=== PATIENT | male | born 1940 | race Caucasian/White ===

== ENCOUNTER 2017-10-24 16:56 | Inpatient (IN) | payer OTHER, MEDICARE ==
[~2017-10-24] VITALS: Ht 172.7 cm; Wt 107.2 kg
[2017-10-24] VITALS (8 sets, daily range): BP systolic 119–146; BP diastolic 63–81; PULSE 64–140; RESP 16–22; TEMP 97.9–98.6; O2SAT 95–98
[~2017-10-24 16:56] MED LIST: ASPI1TAB7 PO; ATOR40TA PO; DILT60TA PO; GLIP5 PO; HYDR-2768 PO; HYDR10TA65 PO; HYDR50TA5 PO; MELO7.5; METF-324 PO; POTA595T5 PO; RANI150T PO; ZOLP10TA3 PO
[2017-10-24] MEDS ORDERED: DILTIAZEM HCL 25 MG/5 ML VIAL IV ONE ×2 (17:45→19:15)
--- NOTE | 2017-10-24 17:59 | RADRPT ---
EXAM DATE/TIME: 10/24/2017 17:50 [place] COMPARISON: CHEST SINGLE AP, June 27, 2015, 15:51. INDICATIONS : Short of breath. MEDICAL HISTORY : None. SURGICAL HISTORY : None. ENCOUNTER: Initial ACUITY: 1 day PAIN SCORE: 0/10 LOCATION: Bilateral chest FINDINGS: A single view of the chest demonstrates the lungs to be symmetrically aerated without evidence of mas s, infiltrate or effusion. The heart is enlarged, similar to prior and 2014. The central bronchopul monary markings lung.. Anterior plate in the lower cervical region. CONCLUSION: Stable cardiomegaly. The lungs are clear. Obie Burdick MD on October 24, 2017 at 17:57 Board Certified Radiologist. This report was verified electronically.
[2017-10-24] MEDS ORDERED: DILTIAZEM INJ 125 MG in SODIUM CHLORIDE 0.9% INJ 100 ML IV PRN (18:15)
[2017-10-24] MEDS ORDERED: HYDR25TA5 PO (18:22)
[2017-10-24] MEDS ORDERED: GLIP5TAB8 PO (18:22)
[2017-10-24] MEDS ORDERED: ALBUAER3 INH (18:22)
[2017-10-24] MEDS ORDERED: GABA300C5 PO (18:22)
[2017-10-24] MEDS ORDERED: ATOR40TA16 PO (18:22)
[2017-10-24] MEDS ORDERED: LEVO.125 PO (18:22)
[2017-10-24] MEDS ORDERED: MULT400T PO (18:22)
[2017-10-24] MEDS ORDERED: ALPR0.25 PO (18:22)
[2017-10-24] MEDS ORDERED: METF500T PO (18:22)
[2017-10-24] MEDS ORDERED: VITA10002 PO (18:22)
[2017-10-24] MEDS ORDERED: RANI150T PO (18:22)
[2017-10-24] MEDS ORDERED: ASPI-516 CHEW (18:22)
[2017-10-24] MEDS ORDERED: METO25TA3 PO (18:22)
[2017-10-24] MEDS ORDERED: XARE15TA PO (18:23)
[2017-10-24] MEDS ORDERED: HYDR-3516 PO (18:26)
[2017-10-24] MEDS ORDERED: HYDR10TA65 PO (18:26)
[2017-10-24] MEDS ORDERED: HYDR5TAB64 PO (18:26)
[2017-10-24] MEDS ORDERED: MELO7.5T27 PO (18:26)
[2017-10-24 18:30] LABS: AUTOMATED NEUTROPHIL # 15.9 TH/MM3 (1.8-7.7); BASOPHIL # 0.1 TH/MM3 (0-0.2); BASOPHIL % 0.5 % (0.0-2.0); EOSINOPHIL # 0.3 TH/MM3 (0-0.4); EOSINOPHIL % 1.2 % (0.0-4.0); HEMOGLOBIN 15.3 GM/DL (13.0-17.0); LYMPH % 19.4 % (9.0-44.0); LYMPHOCYTE # 4.5 TH/MM3 (1.0-4.8); MEAN CELL VOLUME 95.9 FL (80.0-100.0); MEAN CORPUSCULAR HEMOGLOBIN 33.4 PG (27.0-34.0); MEAN CORPUSCULAR HGB CONC 34.8 % (32.0-36.0); MEAN PLATELET VOLUME 7.8 FL (7.0-11.0); MONOCYTE # 2.3 TH/MM3 (0-0.9); NEUT % 68.9 % (16.0-70.0); PLATELET COUNT 356 TH/MM3 (150-450); RED BLOOD COUNT 4.59 MIL/MM3 (4.50-5.90); RED CELL DISTRIBUTION WIDTH 14.1 % (11.6-17.2)
[2017-10-24 18:46] LABS: ALT (GPT) 23 U/L (12-78)
[2017-10-24 18:50] LABS: ALKALINE PHOSPHATASE 78 U/L (45-117); TOTAL PROTEIN 6.5 GM/DL (6.4-8.2); TROPONIN I 0.04 NG/ML (0.02-0.05)
[2017-10-24 18:51] LABS: ALBUMIN 3.3 GM/DL (3.4-5.0); AST (GOT) 22 U/L (15-37); BLOOD UREA NITROGEN 15 MG/DL (7-18); CALCIUM 8.4 MG/DL (8.5-10.1); CHLORIDE 103 MEQ/L (98-107); CREATININE 0.82 MG/DL (0.60-1.30); GLOMERULAR FILTRATION RATE 92 ML/MIN (>89); GLUCOSE,RANDOM 90 MG/DL (74-106); SODIUM (NA) 138 MEQ/L (136-145)
[2017-10-24 18:57] LABS: INTERNATIONAL NORMALIZED RATIO 1.2 RATIO; PROTHROMBIN TIME - PATIENT 12.1 SEC (9.8-11.6)
[2017-10-24] MEDS ORDERED: XARE20TA PO (19:04)
--- NOTE | 2017-10-24 19:29 | PD ---
HPI Chief Complaint: Respiratory Symptoms Time Seen by Provider: 17:41 Travel History International Travel<30 days: No Contact w/Intl Traveler<30days: No Traveled to known affect area: No History of Present Illness HPI 77y male with history of paroxysmal atrial fibrillation on Xarelto, DM, hypothyroid, CHF, and remote history of brain tumors presents to the ED with SOB with exertion and lightheadedness for 3-4 days. No palliative or provocative factors. Symptoms are mild-moderate. Says he ran out of his medication Multaq 3-4 days ago and started developing his symptoms. Denies syncope, head trauma. Patient states that he went to [facility] about 3:45 PM and they recommended he come to the emergency department for evaluation. Patient denies fever, chills, chest pain. His special weapons unit officer is Dr. Dietz. His last echocardiogram was recent but he does not know the results. PFSH Past Medical History Atrial Fibrillation: Yes Anxiety: Yes Depression: Yes Cancer: Yes (Skin Cancer/ brain tumor) High Cholesterol: Yes Chemotherapy: No Congestive Heart Failure: Yes Diabetes: Yes Patient Takes Glucophage: Yes Diminished Hearing: No Gastrointestinal Disorders: No GERD: Yes Genitourinary: No Hypertension: Yes Immune Disorder: No Implanted Vascular Access Dvce: No Kidney Stones: Yes Musculoskeletal: Yes Neurologic: Yes Psychiatric: Yes Reproductive: No Respiratory: No Radiation Therapy: No Thyroid Disease: Yes Past Surgical History Abdominal Surgery: Yes (Cholecystectomy) Cardiac Surgery: No Cholecystectomy: Yes (Late ') Ear Surgery: No Endocrine Surgery: No Eye Surgery: No Genitourinary Surgery: No Neurologic Surgery: Yes (Brain tumor removed 1998) Oral Surgery: No Thoracic Surgery: No Other Surgery: Yes (neck) Social History Alcohol Use: Yes (Social Drinker - Beer) Tobacco Use: No Substance Use: No Allergies-Medications (Allergen,Severity, Reaction): Coded Allergies: amoxicillin (Unverified Allergy, Severe, 04/20/17) morphine (Unverified Allergy, Severe, 04/20/17) prazosin (Unverified Allergy, Severe, 04/20/17) venlafaxine (Unverified Allergy, Severe, 04/20/17) Reported Meds & Prescriptions Reported Meds & Active Scripts Active Reported Xarelto (Rivaroxaban) 20 Mg Tab 20 Mg PO DAILY Hydrocortisone 5 Mg Tab 5 Mg PO HS Take with food to decrease GI upset Hydrocortisone 10 Mg Tab 10 Mg PO DAILY Take with food to decrease GI upset Hydrocodone-Acetaminophen 5-325 mg Tab 1 Tab PO Q6H PRN Meloxicam 7.5 Mg Tab 7.5 Mg PO DAILY Multaq (Dronedarone) 400 Mg Tab 400 Mg PO BID Metformin (Metformin HCl) 500 Mg Tab 250 Mg PO BIDPC Glipizide 5 Mg Tab 2.5 Mg PO BIDAC Take 30 minutes before a meal Atorvastatin (Atorvastatin Calcium) 40 Mg Tab 40 Mg PO HS Alprazolam 0.25 Mg Tab 0.25 Mg PO DAILY Gabapentin 300 Mg Cap 300 Mg PO TID Metoprolol Tartrate 25 Mg Tab 25 Mg PO BID Proair Hfa 8.5 GM Inh (Albuterol Sulfate) 90 Mcg/Act Aer 2 Puff INH Q4-6H PRN 108 mcg/actuation Synthroid (Levothyroxine Sodium) 125 Mcg Tab 125 Mcg PO DAILY Hydrochlorothiazide 25 Mg Tab 25 Mg PO DAILY Vitamin B-12 (Cyanocobalamin) 1,000 Mcg Tab 1,000 Mcg PO DAILY Review of Systems Except as stated in HPI: all other systems reviewed are Neg Physical Exam Narrative GENERAL: WD, WN in NAD SKIN: Focused skin assessment warm/dry. HEAD: Atraumatic. Normocephalic. EYES: Pupils equal and round. No scleral icterus. No injection or drainage. EOMI , no nystagmus ENT: No nasal bleeding or discharge. Mucous membranes pink and moist. NECK: Trachea midline. No JVD. CARDIOVASCULAR:Irregularly irregular, range 70-145 No murmur appreciated. RESPIRATORY: No accessory muscle use. Clear to auscultation. Breath sounds equal bilaterally. GASTROINTESTINAL: Abdomen soft, non-tender, nondistended. No CVA tenderness MUSCULOSKELETAL: No obvious deformities. No clubbing. No cyanosis. No edema. Homans sign negative. NEUROLOGICAL: Awake and alert. No obvious cranial nerve deficits. Motor grossly within normal limits. Normal speech. PSYCHIATRIC: Appropriate mood and affect; insight and judgment normal. Data Data Last Documented VS Vital Signs Date Time Temp Pulse Resp B/P (MAP) Pulse Ox O2 Delivery O2 Flow Rate FiO2 10/24/17 19:13 73 16 127/71 (89) 96 Room Air 10/24/17 17:37 97.9 Orders Orders Complete Blood Count With Diff (10/24/17 17:41) Comprehensive Metabolic Panel (10/24/17 17:41) B-Type Natriuretic Peptide (10/24/17 17:41) Act Partial Throm Time (Ptt) (10/24/17 17:41) Prothrombin Time / Inr (Pt) (10/24/17 17:41) Troponin I (10/24/17 17:41) Electrocardiogram (10/24/17 17:41) Chest, Single Ap (10/24/17 17:41) Diltiazem Inj (Cardizem Inj) (10/24/17 17:45) Diltiazem Inj (Cardizem Inj) (10/24/17 18:15) Diet Heart Healthy (10/24/17 Dinner) Diltiazem Inj (Cardizem Inj) (10/24/17 19:15) Dronedarone (Multaq) (10/24/17 19:45) Urinalysis - C+S If Indicated (10/24/17 19:53) Admit Order (Ed Use Only) (10/24/17 ) Labs Laboratory Tests Test 10/24/17 17:50 White Blood Count 23.0 TH/MM3 Red Blood Count 4.59 MIL/MM3 Hemoglobin 15.3 GM/DL Hematocrit 44.0 % Mean Corpuscular Volume 95.9 FL Mean Corpuscular Hemoglobin 33.4 PG Mean Corpuscular Hemoglobin Concent 34.8 % Red Cell Distribution Width 14.1 % Platelet Count 356 TH/MM3 Mean Platelet Volume 7.8 FL Neutrophils (%) (Auto) 68.9 % Lymphocytes (%) (Auto) 19.4 % Monocytes (%) (Auto) 10.0 % Eosinophils (%) (Auto) 1.2 % Basophils (%) (Auto) 0.5 % Neutrophils # (Auto) 15.9 TH/MM3 Lymphocytes # (Auto) 4.5 TH/MM3 Monocytes # (Auto) 2.3 TH/MM3 Eosinophils # (Auto) 0.3 TH/MM3 Basophils # (Auto) 0.1 TH/MM3 CBC Comment AUTO DIFF Differential Comment AUTO DIFF CONFIRMED Platelet Estimate NORMAL Platelet Morphology Comment NORMAL Prothrombin Time 12.1 SEC Prothromb Time International Ratio 1.2 RATIO Activated Partial Thromboplast Time 25.7 SEC Blood Urea Nitrogen 15 MG/DL Creatinine 0.82 MG/DL Random Glucose 90 MG/DL Total Protein 6.5 GM/DL Albumin 3.3 GM/DL Calcium Level 8.4 MG/DL Alkaline Phosphatase 78 U/L Aspartate Amino Transf (AST/SGOT) 22 U/L Alanine Aminotransferase (ALT/SGPT) 23 U/L Total Bilirubin 1.0 MG/DL Sodium Level 138 MEQ/L Potassium Level 3.7 MEQ/L Chloride Level 103 MEQ/L Carbon Dioxide Level 28.0 MEQ/L Anion Gap 7 MEQ/L Estimat Glomerular Filtration Rate 92 ML/MIN Troponin I 0.04 NG/ML B-Type Natriuretic Peptide 53 PG/ML MDM Medical Decision Making Medical Screen Exam Complete: Yes Emergency Medical Condition: Yes Differential Diagnosis Medication noncompliance, SVT, paroxysmal A. fib Narrative Course 77-year-old male with a history of paroxysmal atrial fibrillation on Xarelto to the emergency department complaining of shortness of breath and lightheadedness for 3-4 days. States that he ran out of his medication, Multaq. Patient placed on air sampling and monitoring. Labs and images ordered. Initial VS 119/67, HR variable from 70-145 BPM. Note that patient is asymptomatic during these periods of paroxysmal atrial fibrillation runs. EKG shows sinus rhythm with 1st degree heart block. Laboratory Tests Test 10/24/17 17:50 White Blood Count 23.0 TH/MM3 Red Blood Count 4.59 MIL/MM3 Hemoglobin 15.3 GM/DL Hematocrit 44.0 % Mean Corpuscular Volume 95.9 FL Mean Corpuscular Hemoglobin 33.4 PG Mean Corpuscular Hemoglobin Concent 34.8 % Red Cell Distribution Width 14.1 % Platelet Count 356 TH/MM3 Mean Platelet Volume 7.8 FL Neutrophils (%) (Auto) 68.9 % Lymphocytes (%) (Auto) 19.4 % Monocytes (%) (Auto) 10.0 % Eosinophils (%) (Auto) 1.2 % Basophils (%) (Auto) 0.5 % Neutrophils # (Auto) 15.9 TH/MM3 Lymphocytes # (Auto) 4.5 TH/MM3 Monocytes # (Auto) 2.3 TH/MM3 Eosinophils # (Auto) 0.3 TH/MM3 Basophils # (Auto) 0.1 TH/MM3 CBC Comment AUTO DIFF Differential Comment AUTO DIFF CONFIRMED Platelet Estimate NORMAL Platelet Morphology Comment NORMAL Prothrombin Time 12.1 SEC Prothromb Time International Ratio 1.2 RATIO Activated Partial Thromboplast Time 25.7 SEC Blood Urea Nitrogen 15 MG/DL Creatinine 0.82 MG/DL Random Glucose 90 MG/DL Total Protein 6.5 GM/DL Albumin 3.3 GM/DL Calcium Level 8.4 MG/DL Alkaline Phosphatase 78 U/L Aspartate Amino Transf (AST/SGOT) 22 U/L Alanine Aminotransferase (ALT/SGPT) 23 U/L Total Bilirubin 1.0 MG/DL Sodium Level 138 MEQ/L Potassium Level 3.7 MEQ/L Chloride Level 103 MEQ/L Carbon Dioxide Level 28.0 MEQ/L Anion Gap 7 MEQ/L Estimat Glomerular Filtration Rate 92 ML/MIN Troponin I 0.04 NG/ML B-Type Natriuretic Peptide 53 PG/ML Last Impressions Chest X-Ray 10/24/17 1741 Signed Impressions: Service Date/Time: Tuesday, October 24, 2017 17:50 - CONCLUSION: Stable cardiomegaly. The lungs are clear. Obie Burdick MD Leukocytosis present at 23. Last white blood cell count 17. Patient is on cortisone 10 mg every morning and 5 mg q. at bedtime. He appears to have chronic elevated white blood cell count. Cardiac enzymes negative, no electrolyte abnormalities. Patient initially placed on diltiazem 5mg and continued to have variable rate of 70-145 BPM. Patient was then administered diltiazem 20 mg IV bolus. Multaq has been ordered for administration. Patient continues to be on a diltiazem drip 5 mg. HR improved to 70-90 BPM, BP stable at 134/63. Pt remained asymptomatic in the ED today. Pt will be admitted for observation. Diagnosis Primary Impression: Paroxysmal atrial fibrillation with rapid ventricular response Additional Impression: Noncompliance with medication regimen Admitting Information Admitting Physician Requests: Admit Condition: Stable Elicia Rincon Oct 24, 2017 19:29
[2017-10-24] MEDS ORDERED: DRONEDARONE 400 MG TAB PO ONE (19:45)
[2017-10-24] MEDS ORDERED: SODIUM CHLORIDE 0.9% FLUSH 10 ML FLUSH IV FLUSH PRN (20:15)
[2017-10-24] MEDS ORDERED: GLUCAGON 1 MG/ML VIAL OTHER PRN (20:15)
[2017-10-24] MEDS ORDERED: ONDANSETRON HCL 4 MG/2 ML VIAL IVP PRN (20:15)
[2017-10-24] MEDS ORDERED: ACETAMINOPHEN 325 MG TAB PO PRN (20:15)
[2017-10-24] MEDS ORDERED: SENNOSIDES 8.6 MG TAB PO PRN (20:15)
[2017-10-24] MEDS ORDERED: DEXTROSE 50% IN WATER 50 ML VIAL(D50) IV PUSH PRN (20:15)
[2017-10-24] MEDS ORDERED: BISACODYL 10 MG SUPP RECTAL PRN (20:15)
[2017-10-24] MEDS ORDERED: NALOXONE HCL 0.4 MG/ML AMP IV PUSH PRN (20:15)
[2017-10-24] MEDS ORDERED: MAGNESIUM HYDROXIDE SUSP 30 ML CUP PO PRN (20:15)
[2017-10-24] MEDS ORDERED: LACTULOSE SYRUP 20 GM/30 ML CUP PO PRN (20:15)
--- NOTE | 2017-10-24 20:23 | HHI.HP ---
[facility] Admission Diagnosis Paroyxsmal Afib with RVR Diagnoses: Travel History International Travel<30 Days: No Contact w/Intl Traveler <30 Da: No Traveled to Known Affected Are: No History of Present Illness 77-year-old male with a past medical history significant for atrial fibrillation anticoagulated on Xarelto, hypertension, hyperlipidemia, diabetes mellitus, chronic pain and history of pituitary tumor status post excision presents to the emergency department with a chief complaint of shortness of breath and increased work of breathing. The patient reports the symptoms started today however he has been feeling intermittently dizzy for the past 2 days. He reports he has been out of his medications since Tuesday. He denies any chest pain. He denies nausea/vomiting/diarrhea. Denies fever/ chills. Vital signs: Temperature 97.9, pulse 140, respirations 22, BP 119/67, pulse ox 98% on room air. Review of Systems Except as stated in HPI: all other systems reviewed are Neg Past Family Social History Past Medical History History of pituitary tumor Hyperlipidemia Atrial fibrillation anticoagulated on Xarelto Hypertension Diabetes mellitus Chronic pain PTSD Past Surgical History Right rotator cuff repair Neck surgery Cholecystectomy Pituitary tumor excision Allergies: Coded Allergies: amoxicillin (Unverified Allergy, Severe, 04/20/17) morphine (Unverified Allergy, Severe, 04/20/17) prazosin (Unverified Allergy, Severe, 04/20/17) venlafaxine (Unverified Allergy, Severe, 04/20/17) Physical Exam Vital Signs Vital Signs Date Time Temp Pulse Resp B/P (MAP) Pulse Ox O2 Delivery O2 Flow Rate FiO2 10/24/17 19:13 73 16 127/71 (89) 96 Room Air 10/24/17 18:37 139 20 128/68 (88) 98 Room Air 10/24/17 18:32 141 119/67 10/24/17 17:37 97.9 140 22 119/67 (84) 98 10/24/17 17:36 81 98 Room Air Physical Exam GENERAL: Obese, male sitting up in bed SKIN: No rashes, ecchymoses or lesions. Cool and dry. HEAD: Atraumatic. Normocephalic. No temporal or scalp tenderness. EYES: Pupils equal round and reactive. Extraocular motions intact. No scleral icterus. No injection or drainage. ENT: Nose without bleeding, purulent drainage or septal hematoma. Throat without erythema, tonsillar hypertrophy or exudate. Uvula midline. Airway patent. NECK: Trachea midline. No JVD or lymphadenopathy. Supple, nontender, no meningeal signs. CARDIOVASCULAR: Regular rate and irregularly irregular rhythm without murmurs, gallops, or rubs. RESPIRATORY: Clear to auscultation. Breath sounds equal bilaterally. No wheezes , rales, or rhonchi. GASTROINTESTINAL: Abdomen soft, non-tender, nondistended. No hepato-splenomegaly , or palpable masses. No guarding. MUSCULOSKELETAL: Extremities without clubbing, cyanosis, or edema. No joint tenderness, effusion, or edema noted. No calf tenderness. NEUROLOGICAL: Awake and alert. Cranial nerves II through XII intact. Motor and sensory grossly within normal limits. Normal speech. Laboratory Laboratory Tests Test 10/24/17 17:50 White Blood Count 23.0 Red Blood Count 4.59 Hemoglobin 15.3 Hematocrit 44.0 Mean Corpuscular Volume 95.9 Mean Corpuscular Hemoglobin 33.4 Mean Corpuscular Hemoglobin Concent 34.8 Red Cell Distribution Width 14.1 Platelet Count 356 Mean Platelet Volume 7.8 Neutrophils (%) (Auto) 68.9 Lymphocytes (%) (Auto) 19.4 Monocytes (%) (Auto) 10.0 Eosinophils (%) (Auto) 1.2 Basophils (%) (Auto) 0.5 Neutrophils # (Auto) 15.9 Lymphocytes # (Auto) 4.5 Monocytes # (Auto) 2.3 Eosinophils # (Auto) 0.3 Basophils # (Auto) 0.1 CBC Comment AUTO DIFF Differential Comment AUTO DIFF CONFIRMED Platelet Estimate NORMAL Platelet Morphology Comment NORMAL Prothrombin Time 12.1 Prothromb Time International Ratio 1.2 Activated Partial Thromboplast Time 25.7 Blood Urea Nitrogen 15 Creatinine 0.82 Random Glucose 90 Total Protein 6.5 Albumin 3.3 Calcium Level 8.4 Alkaline Phosphatase 78 Aspartate Amino Transf (AST/SGOT) 22 Alanine Aminotransferase (ALT/SGPT) 23 Total Bilirubin 1.0 Sodium Level 138 Potassium Level 3.7 Chloride Level 103 Carbon Dioxide Level 28.0 Anion Gap 7 Estimat Glomerular Filtration Rate 92 Troponin I 0.04 B-Type Natriuretic Peptide 53 Result Diagram: 10/24/17174910/24/171749 Caprini VTE Risk Assessment Caprini VTE Risk Assessment: Mod/High Risk (score >= 2) Caprini Risk Assessment Model Point Value = 1 Point Value = 2 Point Value = 3 Point Value = 5 Age 41-60 Minor surgery BMI > 25 kg/m2 Swollen legs Varicose veins or History of unexplained or recurrent spontaneous Oral contraceptives or hormone replacement Sepsis (< 1 month) Serious lung disease, including pneumonia (< 1 month) Abnormal pulmonary function Acute myocardial infarction Congestive heart failure (< 1 month) History of inflammatory bowel disease Medical patient at bed rest Age 61-74 Arthroscopic surgery Major open surgery (> 45 min) Laparoscopic surgery (> 45 min) Malignancy Confined to bed (> 72 hours) Immobilizing plaster cast Central venous access Age >= 75 History of VTE Family history of VTE Factor V Leiden Prothrombin [id number] Lupus anticoagulant Anticardiolipin antibodies Elevated serum homocysteine Heparin-induced thrombocytopenia Other congenital or acquired thrombophilia Stroke (< 1 month) Elective arthroplasty Hip, pelvis, or leg fracture Acute spinal cord injury (< 1 month) Prophylaxis Regimen Total Risk Factor Score Risk Level Prophylaxis Regimen 0-1 Low Early ambulation 2 Moderate Order ONE of the following: *Sequential Compression Device (SCD) *Heparin 5000 units SQ BID 3-4 Higher Order ONE of the following medications: *Heparin 5000 units SQ TID *Enoxaparin/Lovenox 40 mg SQ daily (WT < 150 kg, CrCl > 30 mL/min) *Enoxaparin/Lovenox 30 mg SQ daily (WT < 150 kg, CrCl > 10-29 mL/min) *Enoxaparin/Lovenox 30 mg SQ BID (WT < 150 kg, CrCl > 30 mL/min) AND/OR *Sequential Compression Device (SCD) 5 or more Highest Order ONE of the following medications: *Heparin 5000 units SQ TID (Preferred with Epidurals) *Enoxaparin/Lovenox 40 mg SQ daily (WT < 150 kg, CrCl > 30 mL/min) *Enoxaparin/Lovenox 30 mg SQ daily (WT < 150 kg, CrCl > 10-29 mL/min) *Enoxaparin/Lovenox 30 mg SQ BID (WT < 150 kg, CrCl > 30 mL/min) AND *Sequential Compression Device (SCD) Assessment and Plan Assessment and Plan Assessment/plan: 1. Atrial fibrillation with rapid ventricular response EKG significant for A. fib with RVR, no ST segment elevations or depressions, personally reviewed Patient with history of atrial fibrillation, anticoagulated on Xarelto, has been out of his medications since Tuesday Diltiazem bolus and drip, wean as tolerated Resume home medications Continue anticoagulation with Xarelto 2. History of pituitary tumor Continue home dose steroids 3. Leukocytosis Likely secondary to steroid use UA pending Chest x-ray within normal limits, personally reviewed 4. Hypertension/hyperlipidemia/hypothyroidism Continue home medications 5. Chronic pain Continue home [place] 6. Diabetes mellitus Holding home oral anti-hyperglycemics SSI Monitor blood glucose FEN Heart healthy diet Electrolytes: Monitor and replete when necessary Xarelto Physician Certification 2 Midnight Certification Type: Admission for Inpatient Services Order for Inpatient Services The services are ordered in accordance with Medicare regulations or non- Medicare payer requirements, as applicable. In the case of services not specified as inpatient-only, they are appropriately provided as inpatient services in accordance with the 2-midnight benchmark. Estimated LOS (days): 2 2 days is the estimated time the patient will need to remain in the hospital, assuming treatment plan goals are met and no additional complications. Post-Hospital Plan: Not yet determined Eliz Herrera MD Oct 24, 2017 20:23
[2017-10-24] MEDS: INSULIN ASPART SUPPLEMENTAL SCALE SQ SCH (21:00)
[2017-10-24] MEDS: SODIUM CHLORIDE 0.9% FLUSH 10 ML FLUSH IV FLUSH SCH (21:00)
[2017-10-24] MEDS: DOCUSATE SODIUM 50 MG/SENNA 8.6 MG TAB PO SCH (21:00)
[2017-10-24 21:58] LABS: BILIRUBIN, URINE NEG (NEG); BLOOD, URINE NEG (NEG); GLUCOSE,URINE NEG (NEG); KETONE, URINE NEG (NEG); MUCUS URINE MANY /lpf (OCC); NITRITE,URINE NEG (NEG); URINE COLOR YELLOW (YELLW/STRAW); URINE LEUKOCYTE ESTERASE NEG (NEG)
[2017-10-24] MEDS: HYDROCORTISONE 10 MG TAB PO SCH (22:51)
[2017-10-24] MEDS: ATORVASTATIN 40 MG TAB PO SCH (22:51)
[2017-10-24] MEDS: METOPROLOL TARTRATE 25 MG TAB PO SCH (22:51)
[2017-10-25] VITALS (15 sets, daily range): BP systolic 115–146; BP diastolic 59–71; PULSE 54–65; RESP 16–20; TEMP 97.7–98.5; O2SAT 93–97
[2017-10-25] MEDS: DILTIAZEM HCL 30 MG TAB PO SCH ×2 (00:11→06:10)
[2017-10-25] MEDS: ACETAMINOPHEN/HYDROcodone 325 MG/5 MG TAB PO PRN ×2 (00:14→08:30)
[2017-10-25] MEDS: LEVOTHYROXINE SODIUM 125 MCG TAB PO SCH (06:10)
[2017-10-25 07:21] LABS: AUTOMATED NEUTROPHIL # 9.1 TH/MM3 (1.8-7.7); BASOPHIL # 0.1 TH/MM3 (0-0.2); BASOPHIL % 0.8 % (0.0-2.0); EOSINOPHIL # 0.4 TH/MM3 (0-0.4); EOSINOPHIL % 2.5 % (0.0-4.0); HEMATOCRIT 40.5 % (39.0-51.0); HEMOGLOBIN 14.1 GM/DL (13.0-17.0); LYMPH % 24.6 % (9.0-44.0); LYMPHOCYTE # 3.6 TH/MM3 (1.0-4.8); MEAN CELL VOLUME 95.3 FL (80.0-100.0); MEAN CORPUSCULAR HEMOGLOBIN 33.2 PG (27.0-34.0); MEAN CORPUSCULAR HGB CONC 34.8 % (32.0-36.0); MEAN PLATELET VOLUME 7.7 FL (7.0-11.0); MONO % 9.3 % (0.0-8.0); MONOCYTE # 1.3 TH/MM3 (0-0.9); NEUT % 62.8 % (16.0-70.0); PLATELET COUNT 317 TH/MM3 (150-450); RED BLOOD COUNT 4.25 MIL/MM3 (4.50-5.90); RED CELL DISTRIBUTION WIDTH 14.4 % (11.6-17.2); WHITE BLOOD COUNT 14.5 TH/MM3 (4.0-11.0)
[2017-10-25 07:53] LABS: BICARBONATE 31.6 MEQ/L (21.0-32.0); CALCIUM 8.3 MG/DL (8.5-10.1); CREATININE 0.83 MG/DL (0.60-1.30)
[2017-10-25] MEDS: INSULIN ASPART SUPPLEMENTAL SCALE SQ SCH ×4 (08:00→21:00)
[2017-10-25] MEDS: GABAPENTIN 300 MG CAP PO SCH ×3 (08:30→17:20)
[2017-10-25] MEDS: HYDROCHLOROTHIAZIDE 25 MG TAB PO SCH (08:31)
[2017-10-25] MEDS: ALPRAZolam 0.25 MG TAB PO SCH (08:31)
[2017-10-25] MEDS: RIVAROXABAN 20 MG TAB PO SCH (08:31)
[2017-10-25] MEDS: DOCUSATE SODIUM 50 MG/SENNA 8.6 MG TAB PO SCH ×2 (08:31→21:00)
[2017-10-25] MEDS: METOPROLOL TARTRATE 25 MG TAB PO SCH ×2 (08:32→21:23)
[2017-10-25] MEDS: SODIUM CHLORIDE 0.9% FLUSH 10 ML FLUSH IV FLUSH SCH ×2 (08:32→21:25)
--- NOTE | 2017-10-25 09:34 | HHI.PR ---
Subjective Remarks patient feels better now complains of dull aching pain left chest though- since last night no nausea or vomiting telemetry- back to sinus rhythm HR 58 Objective Vitals Vital Signs Date Time Temp Pulse Resp B/P (MAP) Pulse Ox O2 Delivery O2 Flow Rate FiO2 10/25/17 08:20 Room Air 10/25/17 07:39 98.4 54 20 146/64 (91) 96 10/25/17 04:00 Room Air 10/25/17 04:00 97.9 60 20 131/60 (83) 96 10/25/17 03:47 57 10/25/17 00:16 58 10/25/17 00:00 97.7 63 20 115/59 (77) 95 10/25/17 00:00 Room Air 10/24/17 22:52 65 10/24/17 21:45 Room Air 10/24/17 21:45 98.1 69 20 133/71 (91) 97 10/24/17 21:43 10/24/17 21:12 72 18 134/63 (86) 97 Room Air 10/24/17 20:00 98.6 64 22 146/81 (102) 95 10/24/17 19:13 73 16 127/71 (89) 96 Room Air 10/24/17 18:37 139 20 128/68 (88) 98 Room Air 10/24/17 18:32 141 119/67 10/24/17 17:37 97.9 140 22 119/67 (84) 98 10/24/17 17:36 81 98 Room Air I/O 10/24/17 10/24/17 10/24/17 10/25/17 10/25/17 10/25/17 07:00 15:00 23:00 07:00 15:00 23:00 Intake Total 746 ml Balance 746 ml Intake Oral 720 ml IV Total 26 ml # Voids 2 # Bowel Movements 0 Result Diagram: 10/25/17 0656 10/25/17 0659 Imaging Last Impressions Chest X-Ray 10/24/17 1741 Signed Impressions: Service Date/Time: Tuesday, October 24, 2017 17:50 - CONCLUSION: Stable cardiomegaly. The lungs are clear. Obie Burdick MD Objective Remarks awake and alert, oriented x 3 anicteric lungs- n rales regular rhythm chest wall nontender abdomen- globular- soft extrmeties- no edema neuro non focal A/P Assessment and Plan Assessment/plan: Atrial fibrillation with rapid ventricular response- now back to SR Resume home medications- Multaq + Lopressor DC Cardizem Continue anticoagulation with Xarelto - ran out of meds- did not get meds delivered by mail on time Atypical chest pain - check troponin - states his wildlife control operator is Dr. Dietz - if negative- ? consider myocardial perfusion- will defer to Dr. Dietz HYpokalemia- replace with x 1 po Potassium History of pituitary tumor Continue home dose steroids Leukocytosis- afebrile Likely secondary to steroid use UA, CXR negative hyperlipidemia/hypothyroidism Continue home medications Chronic pain Continue home [place] Diabetes mellitus Holding home oral anti-hyperglycemics SSI Monitor blood glucose FEN Heart healthy diet Electrolytes: Monitor and replete when necessary Xavi Carey MD Oct 25, 2017 09:34
[2017-10-25] MEDS: DRONEDARONE 400 MG TAB PO SCH ×2 (10:12→17:20)
[2017-10-25] MEDS: HYDROCORTISONE 10 MG TAB PO SCH ×2 (10:12→21:23)
[2017-10-25] MEDS ORDERED: POTASSIUM BICARBONATE 25 MEQ EFFERVESCENT TAB PO ONE (10:30)
--- NOTE | 2017-10-25 13:46 | MB ---
cc: SHADIA BROWN DATE OF CONSULTATION 10/25/2017 REASON FOR CONSULTATION Mr. Preciado is a 77-year-old white male well-known from my practice with a history of atrial fibrillation, hypertension, dyslipidemia and diabetes mellitus. He ran out of his medications last Tuesday, yet he did not call our office. He presented with shortness of breath, dizziness, mild chest discomfort and mild lower extremity edema. His symptoms are now significantly improved. He had atrial fibrillation with rapid ventricular function which is now controlled. PAST MEDICAL HISTORY 1. Positive for paroxysmal atrial fibrillation. 2. Hypertension 3. Dyslipidemia 4. Pituitary tumor 5. Diabetes mellitus 6. Chronic pain 7. Post trauma stress disorder 8. History of right rotator cuff repair. 9. Neck surgery 10. Cholecystectomy 11. Pituitary tumor resection MEDICATIONS AT HOME Include: 1. Xarelto 2. Metoprolol 3. Hydrochlorothiazide 4. Atorvastatin 5. Synthroid 6. Metformin 7. Zolpidem 8. Hydrocortisone 9. Glipizide 10. Meloxicam 11. Alprazolam 12. Ibuprofen 13. Vitamin D3 14. ProAir 15. Hydrocodone 16. Acetaminophen 17. Gabapentin 18. Multaq ALLERGIES AMOXICILLIN, MORPHINE, PRAZOSIN AND MEFOXIN. SOCIAL HISTORY The patient does not smoke, but used to smoke in the past. He drinks alcohol occasionally. FAMILY HISTORY Negative for heart disease. REVIEW OF SYSTEMS Otherwise negative. PHYSICAL EXAMINATION Blood pressure 130/60, pulse 56 and regular. HEENT: Negative. 2+ carotid upstrokes. No bruits. LUNGS: Clear. HEART: Regular with no murmur, gallop or rub. ABDOMEN: Soft, no bruits. EXTREMITIES: Trace edema. 1-2+ distal pulses. NEUROLOGIC: Exam is grossly nonfocal. EKG was reviewed and showed sinus rhythm and PAC's, first-degree AV block. Telemetry shows sinus bradycardia with first-degree AV block, telemetry on presentation showed atrial fibrillation with rapid ventricular response. LABORATORY DATA Hemoglobin 14.1, potassium 3.4, creatinine 0.8, AST/ALT normal, troponin 0.04, BNP 53. DIAGNOSIS 1. Paroxysmal atrial fibrillation with rapid ventricular response. 2. Hypertension 3. Dyslipidemia 4. Diabetes mellitus 5. Atypical chest pain 6. Coronary artery disease DISPOSITION Mr. Preciado has converted back to sinus rhythm. We will continue current medical program including anticoagulation with Xarelto and antiarrhythmic therapy with Multaq. He will be monitored on telemetry. We will continue aggressive modification of his cardiac risk factors. If he remains stable, he can be discharged home and I will see him back for followup in our office as an outpatient after discharge. MD SONALI Cruz/MARCELLUS /12:55 PM /1:21 PM
[2017-10-25] MEDS ORDERED: AMBI10TA PO (19:41)
[2017-10-25] MEDS ORDERED: ZOLPIDEM TARTRATE 10 MG TAB PO PRN (19:45)
--- NOTE | 2017-10-25 19:54 | EKG ---
Date Performed: 10/24/2017 Time Performed: 17:48:38 PTAGE: 77 years EKG: Sinus rhythm WITH FIRST DEGREE AV BLOCK WITH OCCASIONAL SUPRAVENTRICULAR PREMATURE COMPLEXES BORDERLINE LEFT AXIS DEVIATION NONSPECIFIC ST & T-WAVE ABNORMALITY ABNORMAL ECG PREVIOUS TRACING : 06/27/2015 18.23 WHEN COMPARED TO PRIOR TRACING THE PATIENT IS NO LONGER BRA DYCARDIC. DOCTOR: Ginger Harrell Interpretating Date/Time 10/25/2017 19:53:10
[2017-10-25] MEDS: ATORVASTATIN 40 MG TAB PO SCH (21:23)
[2017-10-26] VITALS: BP 154/69; PULSE 64; RESP 20; TEMP 97.9; O2SAT 96
[2017-10-26 03:53] VITALS: PULSE 54
[2017-10-26 04:00] VITALS: BP 161/76; PULSE 61; RESP 16; TEMP 97.7; O2SAT 95
[2017-10-26] MEDS: LEVOTHYROXINE SODIUM 125 MCG TAB PO SCH (05:43)
[2017-10-26 08:00] VITALS: BP 145/72; PULSE 69; RESP 18; TEMP 97.9; O2SAT 94
[2017-10-26] MEDS: INSULIN ASPART SUPPLEMENTAL SCALE SQ SCH (08:00)
[2017-10-26] MEDS: DOCUSATE SODIUM 50 MG/SENNA 8.6 MG TAB PO SCH (09:00)
--- NOTE | 2017-10-26 09:05 | HHI.PR ---
Subjective Remarks telemetry- back in a fib rhythm- but rate controlled no complains up and ambulating Objective Vitals Vital Signs Date Time Temp Pulse Resp B/P (MAP) Pulse Ox O2 Delivery O2 Flow Rate FiO2 10/26/17 08:00 97.9 69 18 145/72 (96) 94 10/26/17 04:00 97.7 61 16 161/76 (104) 95 10/26/17 03:53 54 10/26/17 00:00 97.9 64 20 154/69 (97) 96 10/25/17 23:52 58 10/25/17 20:00 98.2 63 16 126/62 (83) 96 10/25/17 20:00 Room Air 10/25/17 19:42 63 10/25/17 19:30 98.0 65 17 142/67 (92) 95 10/25/17 16:16 59 10/25/17 15:53 98.5 61 20 134/66 (88) 97 10/25/17 15:40 56 17 126/71 (89) 97 10/25/17 12:00 54 10/25/17 11:38 97.8 56 20 130/60 (83) 93 I/O 10/25/17 10/25/17 10/25/17 10/26/17 10/26/17 10/26/17 07:00 15:00 23:00 07:00 15:00 23:00 Intake Total 746 ml 720 ml 340 ml Balance 746 ml 720 ml 340 ml Intake Oral 720 ml 720 ml 340 ml IV Total 26 ml # Voids 2 2 2 # Bowel Movements 0 1 Result Diagram: 10/25/17 0656 10/25/17 0659 Imaging Last Impressions Chest X-Ray 10/24/17 1741 Signed Impressions: Service Date/Time: Tuesday, October 24, 2017 17:50 - CONCLUSION: Stable cardiomegaly. The lungs are clear. Obie Burdick MD Objective Remarks awake and alert, oriented x 3 anicteric lungs- n rales irregularly irregular rhythm chest wall nontender abdomen- globular- soft extremities- no edema neuro non focal A/P Assessment and Plan Assessment/plan: Paroxysmal Atrial fibrillation - now rate controlled Resume home medications- Multaq + Lopressor Continue anticoagulation with Xarelto - ran out of meds- did not get meds- Multaq delivered by mail on time Atypical chest pain - check troponin- negative - - OP ff up with Dr. Dietz HYpokalemia- replace with x 1 po Potassium History of pituitary tumor Continue home dose steroids Leukocytosis- afebrile- trended down Likely secondary to steroid use UA, CXR negative hyperlipidemia/hypothyroidism TSH low but not suppressed- continue current dose- advise recheck in 2-3 weeks c /o PCP - may need to adjust Continue home medications Chronic pain Continue home [place] Diabetes mellitus resume meds on DC SSI Monitor blood glucose FEN Heart healthy diet activity as tolerated Xarelto states [facility] not arrived yet [facility] I will write a script for Multaq for him to fill in OP pharmacy advise banana daily OP ff up with Dr. Dietz and PCP Xavi Chau MD Oct 26, 2017 09:05
[2017-10-26] MEDS: METOPROLOL TARTRATE 25 MG TAB PO SCH (09:51)
[2017-10-26] MEDS: DRONEDARONE 400 MG TAB PO SCH (09:51)
[2017-10-26] MEDS: ALPRAZolam 0.25 MG TAB PO SCH (09:52)
[2017-10-26] MEDS: HYDROCHLOROTHIAZIDE 25 MG TAB PO SCH (09:52)
[2017-10-26] MEDS: GABAPENTIN 300 MG CAP PO SCH ×2 (09:52→13:00)
[2017-10-26] MEDS: HYDROCORTISONE 10 MG TAB PO SCH (09:52)
[2017-10-26] MEDS: RIVAROXABAN 20 MG TAB PO SCH (09:52)
[2017-10-26] MEDS: SODIUM CHLORIDE 0.9% FLUSH 10 ML FLUSH IV FLUSH SCH (09:57)
[2017-10-26] MEDS ORDERED: POTA10CA PO (11:15)
[2017-10-26 12:00] VITALS: BP 126/73; PULSE 61; RESP 18; TEMP 98.2; O2SAT 94
[2017-10-26 13:05] LABS: FREE T3 2.13 PG/ML (2.18-3.98); FREE T4 1.55 NG/DL (0.76-1.46)
[2017-10-26 13:12] LABS: BICARBONATE 33.1 MEQ/L (21.0-32.0); CALCIUM 8.7 MG/DL (8.5-10.1); CREATININE 0.74 MG/DL (0.60-1.30)
--- NOTE | 2017-10-26 17:47 | PD.CARD.PN ---
Subjective Subjective Remarks No CP or SOB, feels better Objective Vital Signs / I&O Vital Signs Date Time Temp Pulse Resp B/P (MAP) Pulse Ox O2 Delivery O2 Flow Rate FiO2 10/26/17 12:00 98.2 61 18 126/73 (90) 94 10/26/17 08:00 97.9 69 18 145/72 (96) 94 10/26/17 08:00 96 Room Air 10/26/17 04:00 97.7 61 16 161/76 (104) 95 10/26/17 03:53 54 10/26/17 00:00 97.9 64 20 154/69 (97) 96 10/25/17 23:52 58 10/25/17 20:00 98.2 63 16 126/62 (83) 96 10/25/17 20:00 Room Air 10/25/17 19:42 63 10/25/17 19:30 98.0 65 17 142/67 (92) 95 I/O 10/25/17 10/25/17 10/25/17 10/26/17 10/26/17 10/26/17 07:00 15:00 23:00 07:00 15:00 23:00 Intake Total 746 ml 720 ml 340 ml Balance 746 ml 720 ml 340 ml Intake Oral 720 ml 720 ml 340 ml IV Total 26 ml # Voids 2 2 2 # Bowel Movements 0 1 Physical Exam GENERAL: In NAD SKIN: Warm and dry. HEAD: Normocephalic. EYES: No scleral icterus. No injection or drainage. NECK: Supple, trachea midline. No JVD or lymphadenopathy. CARDIOVASCULAR: Irregular rate and rhythm without murmurs, gallops, or rubs. RESPIRATORY: Breath sounds equal bilaterally. No accessory muscle use. GASTROINTESTINAL: Abdomen soft, non-tender, nondistended. MUSCULOSKELETAL: No cyanosis, or edema. Laboratory Laboratory Tests Test 10/26/17 12:01 Blood Urea Nitrogen 12 MG/DL Creatinine 0.74 MG/DL Random Glucose 74 MG/DL Calcium Level 8.7 MG/DL Sodium Level 138 MEQ/L Potassium Level 4.5 MEQ/L Chloride Level 102 MEQ/L Carbon Dioxide Level 33.1 MEQ/L Anion Gap 3 MEQ/L Estimat Glomerular Filtration Rate 103 ML/MIN Free Thyroxine 1.55 NG/DL Free Triiodothyronine (T3) pg/dL 2.13 PG/ML Assessment and Plan Problem List: (1) Atrial fibrillation ICD Codes: I48.91 - Unspecified atrial fibrillation (2) CAD (coronary artery disease) ICD Codes: I25.10 - Atherosclerotic heart disease of [place] coronary artery without angina pectoris (3) HTN (hypertension) ICD Codes: I10 - Essential (primary) hypertension (4) Diabetes ICD Codes: E11.9 - Type 2 diabetes mellitus without complications Assessment and Plan Rate controlled. Multaq restarted. Continue anticoagulation. Increase activity. DC home. Will schedule outpt f/u. Radames Dietz MD Oct 26, 2017 17:47
== END 2017-10-26 14:45 | disposition home or self-care (01) | DRG 310 ==
LOC: NEPC 16:56 → NEDA 19:55 → N04A 21:27
PROVIDERS: ADMIT Internal Medicine; ATTEND Internal Medicine
DX: I48.0 Paroxysmal atrial fibrillation (principal); Z79.02 Long term (current) use of antithrombotics/antiplatelets; I11.0 Hypertensive heart disease with heart failure; I50.9 Heart failure, unspecified; E11.9 Type 2 diabetes mellitus without complications; Z79.84 Long term (current) use of oral hypoglycemic drugs; D49.7 Neoplasm of unspecified behavior of endocrine glands and other parts of nervous system; Z79.52 Long term (current) use of systemic steroids; E78.5 Hyperlipidemia, unspecified; G89.29 Other chronic pain; F43.10 Post-traumatic stress disorder, unspecified; E87.6 Hypokalemia; R07.89 Other chest pain; I25.10 Atherosclerotic heart disease of native coronary artery without angina pectoris; Z91.14 Patient's other noncompliance with medication regimen; Z87.891 Personal history of nicotine dependence
CPT/HCPCS: 71045; 80048; 80053; 81001; 82948; 83880; 84439; 84443; 84481; 84484; 85025; 85610; 85730; 93005; 96365; 96375